=== PATIENT | female | born 1985 | race African-American/Black ===

== ENCOUNTER 2018-07-13 13:42 | Inpatient (IN) ==
[2018-07-13] MEDS ORDERED: ONDANSETRON 4 MG/2 ML VIAL IV PRN (14:00)
[2018-07-13] MEDS ORDERED: OXYTOCIN/LR 20 UNIT/1,000 ML BAG IV SCH (14:00)
[2018-07-13] MEDS ORDERED: BUTORPHANOL 2 MG/ML VIAL IV PRN (14:02)
[2018-07-13 14:34] LABS: Basophils % 0.3 % (0.0-0.8); Eosinophils # 0.1 10*3/uL (0.0-0.87); Eosinophils % 0.5 % (0.00-10.9); Hemoglobin 10.8 GM/DL (12.0-16.0); Immature Granulocytes % 0.5 %; Immature Granulocytes Absolute 0.05 #; Lymphocytes % 21.6 % (21.3-54.2); Mean Corpuscular HGB Conc 30.9 GM/DL (32-36); Mean Corpuscular Hemoglobin 26 PG (27-34); Mean Corpuscular Volume 83.1 FL (87-102); Mean Platelet Volume 12.2 FL (9.6-12.0); Monocytes # 0.9 10*3/uL (0.11-0.8); Monocytes % 9.5 % (1.7-12.7); Neutrophils # 6.3 10*3/uL (1.4-7.4); Neutrophils % 67.6 % (38.7-73.9); Platelet Count 139 T/CUMM (130-400); Red Blood Count 4.21 MC/CUMM (3.8-5.5); Red Cell Distribution Width 19.1 % (9.3-17.3); White Blood Count 9.3 T/CUMM (4-12)
[2018-07-13] MEDS: LACTATED RINGERS 1,000 ML IV SCH ×2 (15:18→16:16)
[2018-07-13] MEDS ORDERED: PROMETHAZINE 25 MG/1 ML VIAL IM ONE (15:23)
[2018-07-13] MEDS ORDERED: hydrOXYzine HCL 25 MG/1 ML VIAL IM PRN (15:23)
[2018-07-13] MEDS ORDERED: FAMOTIDINE 20 MG/2 ML VIAL IV ONE (15:23)
[2018-07-13] MEDS ORDERED: NALOXONE 0.4 MG/ML VIAL IV PRN (15:23)
[2018-07-13] MEDS ORDERED: diphenhydrAMINE 50 MG/1 ML VIAL IV PRN ×2 (15:23)
[2018-07-13] MEDS ORDERED: ONDANSETRON 4 MG/2 ML VIAL IV ONE (15:23)
[2018-07-13] MEDS ORDERED: CITRIC ACID/SODIUM CITRATE 30 ML UDCUP PO ONE (15:23)
[2018-07-13] MEDS ORDERED: LACTATED RINGERS 1,000 ML IV ONE (15:23)
[2018-07-13] MEDS ORDERED: ePHEDrine 50 MG/ML AMP IV PRN (15:23)
[2018-07-13] MEDS ORDERED: fentaNYL 2 MCG/ROPIV 0.2% EPID 100 ML EPIDURAL SCH (15:30)
[2018-07-13] MEDS ORDERED: METHYLERGONOVINE 0.2 MG/1 ML AMP ONE (18:57)
[2018-07-13] MEDS ORDERED: LIDOCAINE 1% 50 ML VIAL ONE (18:57)
[2018-07-13] MEDS ORDERED: miSOPROStol 200 MCG TABLET ONE (18:57)
[2018-07-13] MEDS ORDERED: MEASLES/MUMPS/RUBELLA VACCINE 0.5 ML VIAL SUBCUT ONE (19:18)
[2018-07-13] MEDS ORDERED: BENZOCAINE 20%/MENTHOL 0.5% SPRAY 56 GM CAN TOP PRN (19:18)
[2018-07-13] MEDS ORDERED: BISACODYL 10 MG SUPP RECTAL PRN (19:18)
[2018-07-13] MEDS ORDERED: DIPH/TET/ACEL PERT BOOSTER VACCINE 0.5 ML VIAL IM ONE (19:18)
[2018-07-13] MEDS ORDERED: oxyCODONE/ACETAMINOPHEN 5-325 MG TABLET PO PRN ×2 (19:18)
[2018-07-13] MEDS ORDERED: HYDROCORTISONE 2.5% RECTAL CREAM 30 GM TUBE TOP PRN (19:18)
[2018-07-13] MEDS ORDERED: WITCH HAZEL PADS 100/JAR TOP PRN (19:18)
[2018-07-13] MEDS ORDERED: LANOLIN 50% CREAM 0.3 OZ TUBE TOP PRN (19:18)
[2018-07-13] MEDS ORDERED: RHO(D) IMMUNE GLOBULIN 300 MCG SYRINGE IM ONE (19:18)
[2018-07-13] MEDS ORDERED: ACETAMINOPHEN 325 MG TABLET PO PRN (19:18)
[2018-07-13] MEDS ORDERED: OXYTOCIN/LR 20 UNIT/1,000 ML BAG IV ONE (19:18)
[2018-07-13] MEDS ORDERED: IBUPROFEN 800 MG TABLET PO PRN (19:18)
[2018-07-14 06:17] LABS: Basophils % 0.2 % (0.0-0.8); Eosinophils # 0.1 10*3/uL (0.0-0.87); Eosinophils % 0.7 % (0.00-10.9); Immature Granulocytes % 0.9 %; Immature Granulocytes Absolute 0.12 #; Lymphocytes # 1.9 10*3/uL (1.4-4.0); Lymphocytes % 13.7 % (21.3-54.2); Mean Corpuscular HGB Conc 31.9 GM/DL (32-36); Mean Corpuscular Hemoglobin 26 PG (27-34); Mean Corpuscular Volume 80.6 FL (87-102); Mean Platelet Volume 11.6 FL (9.6-12.0); Monocytes # 1.1 10*3/uL (0.11-0.8); Neutrophils # 10.6 10*3/uL (1.4-7.4); Neutrophils % 76.5 % (38.7-73.9); Platelet Count 120 T/CUMM (130-400); Red Cell Distribution Width 18.7 % (9.3-17.3)
[2018-07-14 06:18] LABS: Hemoglobin 8.6 GM/DL (12.0-16.0); Red Blood Count 3.35 MC/CUMM (3.8-5.5); White Blood Count 13.8 T/CUMM (4-12)
[2018-07-14 06:32] LABS: Hypochromasia 1+
[2018-07-14] MEDS ORDERED: [UNRECOGNIZED DRUG - REMARK] PO SCH (09:00)
[2018-07-14] MEDS ORDERED: [UNRECOGNIZED DRUG - OTHER] PO SCH (09:00)
[2018-07-14] MEDS ORDERED: VITAMIN D3 PO SCH (09:00)
[2018-07-14] MEDS: DOCUSATE SODIUM 100 MG CAPSULE PO SCH ×2 (10:37→21:14)
[2018-07-14] MEDS: FERROUS SULFATE 325 MG TABLET PO SCH ×3 (10:38→21:14)
[2018-07-14] MEDS: MULTIVITAMIN (PRENATAL) TABLET PO SCH (12:30)
[2018-07-15 07:27] VITALS: BP 95/58
[2018-07-15] MEDS: FERROUS SULFATE 325 MG TABLET PO SCH (09:47)
[2018-07-15] MEDS: DOCUSATE SODIUM 100 MG CAPSULE PO SCH (09:47)
[2018-07-15] MEDS: MULTIVITAMIN (PRENATAL) TABLET PO SCH (09:47)
== END 2018-07-15 12:35 | disposition home or self-care (01) | DRG 775 ==
LOC: N.LDOUT 13:42 → N.LD 13:46 → N.OB 22:00
PROVIDERS: ADMIT Obstetrics & Gynecology; ATTEND Obstetrics & Gynecology